=== PATIENT | male | born 1955 | race Caucasian/White ===

== ENCOUNTER 2016-11-28 09:03 | Day surgery (SDC) | payer OTHER ==
[~2016-11-28] VITALS: Ht 182.9 cm; Wt 68.0 kg
[~2016-11-28 09:03] MED LIST: IBUP-1827 PO; OMEP20TA24 PO; Sodium Chloride LOK Flush 10 mL Syringe IV PRN; fentaNYL-PF 50 mCg/mL 2 mL Inj IVPUSH PRN
[2016-11-28 09:37] VITALS: BP 118/75; PULSE 60; O2SAT 99
[2016-11-28] MEDS: 0.9% Sodium Chloride 1,000 ML IV SCH ×2 (09:47→10:12)
[2016-11-28 10:31] VITALS: BP 104/67; PULSE 61; RESP 16; O2SAT 95
[2016-11-28 10:40] VITALS: BP 109/70; PULSE 61; RESP 16; O2SAT 96
--- NOTE | 2016-11-28 11:43 | ENDO ---
[address] [address] ENDOSCOPY PROCEDURE PATIENT: STAN HOOD : 1955 MR#: [id number] ADMIT: 11/28/2016 JOB ID: [id number] PROCEDURE: Esophagogastroduodenoscopy. INDICATION: The patient presented to the clinic initially with complaints of dysphagia after he was started on omeprazole. After he was started on omeprazole, his dysphagia resolved. EGD is being done today to evaluate for the possibility of Haro's, as he also reported a history of gastroesophageal reflux. ASA CLASSIFICATION: 1. MALLAMPATI SCORE: 2. MEDICATIONS: Versed 4 mg, fentanyl 100 mcg. INSTRUMENT USED: GIF-H180-J. PROCEDURE DETAILS: After informed consent was obtained, the patient was brought to the GI suite, where he was placed on oxygen via nasal cannula and monitored with continuous pulse oximeter, telemetry, and blood pressure monitoring. A time-out was performed. Then, he was placed in a left lateral decubitus position and medications were administered for sedation. A standard EGD scope was inserted through the bite block and advanced without difficulty to the second portion of the duodenum. FINDINGS: 1. Normal-appearing duodenal bulb, first and second portion. 2. Normal-appearing pylorus. In the antrum and body of stomach, there was mild erythema suggestive of mild gastritis. Multiple random biopsies were obtained. 3. Retroflexed views in the gastric body revealed a normal-appearing cardia and fundus. 4. The GE junction was at approximately 43 cm and appeared regular. Just above the GE junction, there was a partial Schatzki's ring with two adjacent diverticula at the 9 o'clock and 5 o'clock position. Multiple biopsies were obtained of the Schatzki's ring. 5. The remainder of the esophagus appeared otherwise unremarkable. 6. Random biopsies were obtained in the mid esophagus. IMPRESSION: 1. Schatzki's ring that was disrupted with cold biopsy forceps. 2. 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 3. Mild gastritis. RECOMMENDATIONS: 1. Continue PPI. 2. Proceed to colonoscopy. COMPLICATIONS: None. ESTIMATED BLOOD LOSS: Less than 5 mL.
--- NOTE | 2016-11-28 11:47 | ENDO ---
[address] [address] ENDOSCOPY PROCEDURE PATIENT: STAN HOOD : 1955 MR#: [id number] ADMIT: 11/28/2016 JOB ID: [id number] PROCEDURE: Colonoscopy. INDICATION: Colon cancer screening. Please see above for ASA classification, Mallampati score, and medications. INSTRUMENT USED: PCF-H180-AL. PREP QUALITY: Fair. PROCEDURE DETAILS: After completion of the EGD exam, a digital rectal exam was performed, which was unremarkable. The colonoscope was then inserted into the rectum and advanced under direct visualization to the cecum, which was identified by the presence of the ileocecal valve and appendiceal orifice. Once the cecum was reached, the terminal ileum was intubated, which appeared unremarkable. The colonoscope was then withdrawn back into the rectum as the mucosa and lumen were examined. In the rectum, retroflexion was performed. Following retroflexion, remaining air in the rectum was suctioned, and procedure was completed. FINDINGS: Small internal hemorrhoids. Otherwise normal exam from rectum to cecum. IMPRESSION: Internal hemorrhoids. RECOMMENDATIONS: 1. Fiber rich diet. 2. Repeat colonoscopy in 10 years, sooner if symptoms should dictate. COMPLICATIONS: None. ESTIMATED BLOOD LOSS: 0.
--- NOTE | 2016-11-29 13:55 | PATH ---
SURGICAL PATHOLOGY Attending Physician:Mabel Perry CASE STATUS: Signed Out PATIENT NAME: STAN HOOD PID: [id number] : 1955 DATE COLLECTED:11/28/2016 16:09 SPECIMEN: 1: Esophagus, Biopsy 2: Gastric, Biopsy 3: Esophagus, Biopsy CLINICAL HISTORY: DYSPHAGIA 1).MID ESOPHAGUS BIOPSY 2).GASTRIC BIOPSY 3).SCHATZKI RING BIOPSY FINAL DIAGNOSIS: 1.MID ESOPHAGUS BIOPSY: SQUAMOUS MUCOSA WITH NO DIAGNOSTIC ALTERATIONS. Negative for intestinal/Haro' s metaplasia. Negative for dysplasia and malignancy. 2.GASTRIC BIOPSY: BODY-TYPE MUCOSA WITH NO DIAGNOSTIC ALTERATIONS. Negative for Helicobacter organisms. Negative for intestinal metaplasia. Negative for dysplasia and malignancy. 3.SCHATZKI RING BIOPSY: SQUAMOUS MUCOSA WITH MILD INFLAMMATORY CHANGES. NEGATIVE FOR INTESTINAL METAPLASIA. NEGATIVE FOR DYSPLASIA AND MALIGNANCY. ICD10 CODE K20.9 GROSS DESCRIPTION: The specimen is received in three formalin filled containers labeled with the patient's name. 1). The specimen is sublabeled "mid esophagus" and consists of 2 portions of tissue which aggregate to 0.3 x 0.2 x 0.2 CM. The specimen is entirely submitted in cassette 1A. 2). The specimen is sublabeled "gastric" and consists of 3 portions of tissue which aggregate to 0.3 x 0.3 x 0.2 CM. The specimen is entirely submitted in cassette 2A. 3). The specimen is sublabeled "Schatzki's ring" and consists of 4 portions of tissue which aggregate to 0.2 x 0.2 x 0.1 CM. The specimen is entirely submitted in cassettes 3A. 11/28/2016 [facility] MICRO DESCRIPTION: See diagnosis. ICD-9 CODES: CPT CODES: 1: 67224 2: 69689 3: 47240 Electronically Signed Out Jeane Rios MD [facility] [address], [place] [address] Technical component performed at [facility], [facility] [address], [place], [address]
== END 2016-11-28 23:59 | disposition home or self-care (01) ==
LOC: END 09:03
PROVIDERS: ATTEND Internal Medicine Gastroenterology
DX: Z12.11 Encounter for screening for malignant neoplasm of colon (principal); K64.8 Other hemorrhoids; K20.9 Esophagitis, unspecified; R13.11 Dysphagia, oral phase; K21.9 Gastro-esophageal reflux disease without esophagitis; K59.00 Constipation, unspecified
CPT/HCPCS: 43239; 88305; 99153; G0121; G0500; J2250; J3010; J7030